=== PATIENT | female | born 1965 | race Caucasian/White ===

== ENCOUNTER 2019-07-13 09:18 | Inpatient (IN) | payer OTHER ==
[2019-07-10 11:49] LABS: BASOPHILS # (AUTO) 0.1 X10'3 (0-0.2); BASOPHILS % (AUTO) 0.6 % (0-1); EOSINOPHILS # (AUTO) 0.2 X10'3 (0-0.9); EOSINOPHILS % (AUTO) 2.4 % (0-6); LYMPHOCYTES # (AUTO) 2.8 X10'3 (1.1-4.8); LYMPHOCYTES % (AUTO) 30.7 % (21-51); MEAN CORPUSCULAR HEMOGLOBIN 31.3 PG (27.0-31.0); MEAN CORPUSCULAR HGB CONC 33.8 g/dL (33.0-36.5); MEAN CORPUSCULAR VOLUME 92.7 FL (78-98); MEAN PLATELET VOLUME 7.1 FL (7.4-10.4); MONOCYTES # (AUTO) 0.7 X10'3 (0-0.9); MONOCYTES % (AUTO) 7.9 % (2-12); NEUTROPHILS # (AUTO) 5.4 X10'3 (1.8-7.7); NEUTROPHILS % (AUTO) 58.4 % (42-75); PRE OP HEMATOCRIT 41.4 % (35.0-45.0); PRE OP PLATELET COUNT 382 X10'3 (140-440); RED BLOOD COUNT 4.47 X10'6 (4.20-5.60); RED CELL DISTRIBUTION WIDTH 13.6 % (11.5-14.5)
[2019-07-10 12:34] LABS: ALBUMIN 3.5 G/DL (3.4-5.0); ALBUMIN/GLOBULIN RATIO 0.8 (1.1-1.5); ALKALINE PHOSPHATASE 78 IU/L (46-116); BLOOD UREA NITROGEN 16 MG/DL (7-18); BUN/CREATININE RATIO 21.1 (6.6-38.0); CALCIUM 9.1 MG/DL (8.5-10.1); CHLORIDE 103 MMOL/L (99-107); CREATININE 0.76 MG/DL (0.40-0.90); PRE OP ALT 55 U/L (30-65); PRE OP ANION GAP 4 (8-16); PRE OP AST 33 U/L (10-37); PRE OP BILIRUB, TOTAL 0.4 MG/DL (0.0-1.0); PRE OP GLUCOSE 113 MG/DL (70-104); PRE OP POTASSIUM 4.3 MMOL/L (3.4-5.1); PRE OP SODIUM 136 MMOL/L (135-145); TOTAL PROTEIN 7.7 G/DL (6.4-8.2); eGFR 80 ML/MIN
[2019-07-13] VITALS (8 sets, daily range): BP systolic 123–142; BP diastolic 71–106
[~2019-07-13] VITALS: Ht 165.1 cm; Wt 134.0 kg
[~2019-07-13 09:18] MED LIST: ACET-812 PO; AMLO5TAB PO; ATOR20TA PO; CHOL20004 PO; FISH OIL PO; IBUP-24 PO; LEVO100T PO; MONT10TA26 PO; MULT-240 PO; PANT-47 PO; TRAM50TA2 PO; VENL150T3 PO; VENL75TA90 PO; VITA100T PO; ceFOXitin sod/dextrose 2g/50ml 50 ML IV ONE; famotidine 20mg tablet PO ONE; ringers solution, lacted 1,000 ML IV SCH
[2019-07-13] MEDS ORDERED: ALPR-624 PO (10:37)
[2019-07-13] MEDS ORDERED: GLUCOSAMINE PO (10:37)
[2019-07-13] MEDS ORDERED: ringers solution, lacted 1,000 ML IV SCH (12:11)
[2019-07-13] MEDS ORDERED: fentaNYL/PF 50MCG/1 ML 2ML syringe IV PRN ×2 (12:15)
[2019-07-13] MEDS ORDERED: enalaprilat dihydrate 2.5mg/2ml vial IV PRN (12:15)
[2019-07-13] MEDS ORDERED: morphine 2 MG/ML inj. syringe IV PRN (12:15)
[2019-07-13] MEDS ORDERED: morphine 4 MG/ML inj SYRINge IV PRN (12:15)
[2019-07-13] MEDS ORDERED: hydrALAZINE 20mg/ml inj. IV PRN (12:15)
[2019-07-13] MEDS ORDERED: ondansetron/PF 4mg/2ml inj IV PRN (12:15)
[2019-07-13] MEDS ORDERED: LIDOcaine 1% 30ml preserv. free vial ONE (12:23)
[2019-07-13] MEDS ORDERED: BUPIVAcaine/PF 2.5 mg/ml (0.25%) 30ml vial ONE (12:23)
[2019-07-13] MEDS ORDERED: dexamethasone sod phosphate 10mg/ml inj ONE (13:07)
[2019-07-13] MEDS ORDERED: sevoflurane 250ml liquid IH ONE (13:07)
[2019-07-13] MEDS ORDERED: labetalol 20mg/4ml (5mg/ml) syringe IV ONE (13:07)
[2019-07-13] MEDS ORDERED: midazolam 2 mg/2 ml injection ONE (13:10)
[2019-07-13] MEDS ORDERED: fentaNYL/PF 50MCG/1 ML 2ML syringe ONE (13:10)
[2019-07-13] MEDS ORDERED: propofol inj 20 ML IV ONE ×2 (13:19)
[2019-07-13] MEDS ORDERED: rocuronium 10mg/ml inj IV ONE ×2 (13:19→14:32)
[2019-07-13] MEDS ORDERED: LIDOcaine 2% (20mg/ml) 5ml vial ONE (13:19)
[2019-07-13] MEDS ORDERED: ondansetron/PF 4mg/2ml inj ONE (13:20)
[2019-07-13] MEDS ORDERED: ceFAZolin 1000mg inj ONE (13:21)
[2019-07-13] MEDS ORDERED: ceFOXitin 1000 MG inj ONE ×2 (13:34)
[2019-07-13] MEDS ORDERED: glycopyrrolate 0.2mg/ml inj ONE (14:39)
[2019-07-13] MEDS ORDERED: neostigmine methylsulfate 1 MG/ML 10ml vial ONE (14:39)
--- NOTE | 2019-07-13 14:55 | NUR ---
Received from OR via [facility], accompanied by Anesthesiologist MONI and report given by Anesthesiolgist. PT DROWSY, OXYGENATING WELL ON 10 LPM O2 VIA MASK, NO RESP DISTRESS NOTED. DENIES NAUSEA, C/O 6/10 ABD INCISIONAL PAIN. MEDICATED PRN, SEE EMAR. LARGE BANDAIDS TO 3 ABDOMINAL TROCAR SITES, CDI. VSS.
[2019-07-13] MEDS ORDERED: HYDROcodone/acetaminophen 5mg/325mg tablet PO PRN (15:05)
[2019-07-13] MEDS ORDERED: HYDROcodone/acetaminophen 10/325mg tab PO PRN (15:05)
[2019-07-13] MEDS ORDERED: HYDROcodone/acetaminophen 10/325mg tab PO ONE (15:30)
--- NOTE | 2019-07-13 16:20 | NUR ---
PAIN LEVEL TRENDING DOWN AFTER MEDS GIVEN, VSS. TOLERATING PO FLUIDS WELL. AMBULATED TO BR, VOIDED WITHOUT DIFFICULTY. DC INSTRUCTIONS WERE EXPLAINED TO PT AND HER DAUGHTERS, THEY VERBALIZED UNDERSTANDING. DCD IN STABLE CONDITION, TAKEN TO CAR VIA WC. PRESCRIPTION WAS GIVEN TO PT
== END 2019-07-14 16:20 | disposition home or self-care (01) | DRG 331 ==
LOC: PAS IN 09:18 → EDSTATUS 11:15
PROVIDERS: ADMIT Surgery; ATTEND Surgery
PROC: 8E0W4CZ Robotic Assisted Procedure of Trunk Region, Percutaneous Endoscopic Approach (ICD-10-PCS; 2019-07-13)
PROC: 0DBH4ZZ Excision of Cecum, Percutaneous Endoscopic Approach (ICD-10-PCS; principal; 2019-07-13 13:07)
DX: C18.0 Malignant neoplasm of cecum (principal); Z90.49 Acquired absence of other specified parts of digestive tract
CPT/HCPCS: Z7506; Z7508; 36415; 80053; 82948; 85025; 93005; A4215; A4618; J0690; J0694; J1100; J2001; J2250; J2270; J2405; J2704; J2710; J3010; J3490; J7120

== ENCOUNTER 2021-06-20 06:13 | Inpatient (IN) | payer OTHER ==
[2021-06-13 14:50] LABS: BASOPHILS % (AUTO) 0.6 % (0-1); EOSINOPHILS # (AUTO) 0.2 X10'3 (0-0.9); EOSINOPHILS % (AUTO) 1.9 % (0-6); LYMPHOCYTES # (AUTO) 3.1 X10'3 (1.1-4.8); LYMPHOCYTES % (AUTO) 37.2 % (21-51); MEAN CORPUSCULAR HEMOGLOBIN 32.2 PG (27.0-31.0); MEAN CORPUSCULAR HGB CONC 34.4 g/dL (33.0-36.5); MEAN CORPUSCULAR VOLUME 93.4 FL (78-98); MEAN PLATELET VOLUME 7.1 FL (7.4-10.4); MONOCYTES # (AUTO) 0.5 X10'3 (0-0.9); MONOCYTES % (AUTO) 6.2 % (2-12); NEUTROPHILS # (AUTO) 4.5 X10'3 (1.8-7.7); NEUTROPHILS % (AUTO) 54.1 % (42-75); PRE OP HEMATOCRIT 39.5 % (35.0-45.0); PRE OP HEMOGLOBIN 13.6 g/dL (12.0-16.0); PRE OP PLATELET COUNT 411 X10'3 (140-440); RED BLOOD COUNT 4.23 X10'6 (4.20-5.60)
[2021-06-13 15:09] LABS: ALKALINE PHOSPHATASE 79 IU/L (46-116); BLOOD UREA NITROGEN 18 MG/DL (7-18); BUN/CREATININE RATIO 21.2 (6.6-38.0); CALCIUM 9.4 MG/DL (8.5-10.1); CHLORIDE 102 MMOL/L (99-107); CREATININE 0.85 MG/DL (0.40-0.90); PRE OP ALT 61 U/L (30-65); PRE OP ANION GAP 8 (8-16); PRE OP AST 32 U/L (10-37); PRE OP BILIRUB, TOTAL 0.5 MG/DL (0.0-1.0); PRE OP GLUCOSE 103 MG/DL (70-104); PRE OP POTASSIUM 4.5 MMOL/L (3.4-5.1); PRE OP SODIUM 137 MMOL/L (135-145); TOTAL CARBON DIOXIDE 26.7 MMOL/L (24-32); eGFR 70 ML/MIN
[2021-06-13 16:03] LABS: HEMOGLOBIN A1C 6.4 % (4.5-6.2)
[~2021-06-20] VITALS: Ht 165.1 cm; Wt 127.1 kg
[2021-06-20] VITALS (23 sets, daily range): BP systolic 108–159; BP diastolic 45–97
[~2021-06-20 06:13] MED LIST changes: -ACET-812 PO; -ATOR20TA PO; +ATOR40TA PO; -CHOL20004 PO; -FISH OIL PO; +GLUCOSAMINE PO; -IBUP-24 PO; +KRILL OIL; +MONT-40 PO; -MONT10TA26 PO; -VITA100T PO; +ceFAZolin inj. 3,000 MG in normal saline 100ml IV soln 100 ML IV ONE; -ceFOXitin sod/dextrose 2g/50ml 50 ML IV ONE; -ringers solution, lacted 1,000 ML IV SCH; +tranexamic acid 650mg tablet PO ONE; +vancomycin 1,500 MG in NS 300ml IV soln IV ONE
[2021-06-20] MEDS ORDERED: PSYL1CAP3 PO (06:48)
[2021-06-20] MEDS: ringers solution, lacted 1,000 ML IV SCH ×2 (06:51→13:18)
[2021-06-20] MEDS ORDERED: tetracaine 1% (10mg/ml) pres. free inj. ONE (09:11)
[2021-06-20] MEDS ORDERED: MIDAZolam 1mg/ml 10ml vial ONE (09:14)
[2021-06-20] MEDS ORDERED: fentaNYL/PF 50MCG/1 ML 2ML syringe ONE (09:14)
[2021-06-20] MEDS ORDERED: ketorolac trometh. 30mg/ml inj. ONE (09:38)
[2021-06-20] MEDS ORDERED: ROPIVAcaine 0.5% (5mg/ml) 30ml vial ONE ×2 (09:39→11:22)
[2021-06-20] MEDS ORDERED: propofol inj 20 ML IV ONE ×3 (10:19→10:20)
[2021-06-20] MEDS ORDERED: proCHLORperazine 10 MG/2 ml inj IV PRN (10:45)
[2021-06-20] MEDS ORDERED: morphine 4 MG/ML inj SYRINge IV PRN (10:45)
[2021-06-20] MEDS ORDERED: meperidine/PF 25mg/ml syringe IV PRN ×3 (10:45)
[2021-06-20] MEDS ORDERED: ondansetron/PF 4mg/2ml inj IV PRN (10:45)
[2021-06-20] MEDS ORDERED: morphine 2 MG/ML inj. syringe IV PRN (10:45)
[2021-06-20] MEDS ORDERED: ringers solution, lacted 1,000 ML IV SCH (10:45)
--- NOTE | 2021-06-20 11:43 | NUR ---
Received from OR via , accompanied by Anesthesiologist DR CAT and report given by Anesthesiolgist. PT PRESENTS WITH 20G RIGHT WRIST, RIGHT KNEE DRESSING DRY AND INTACT WITH PODER PACK. VSS. Addendum: 06/20/21 at 1336 by Morena Cortez RN, RN Amended: Links added.
[2021-06-20] MEDS ORDERED: diphenhydrAMINE 25mg capsule PO PRN ×2 (12:00)
[2021-06-20] MEDS ORDERED: HYDROmorphone inj. 0.5 MG/0.5 ML DISP.SYRIN IV PRN (12:00)
[2021-06-20] MEDS ORDERED: oxyCODONE IR 5mg (immed. release) tablet PO PRN (12:00)
[2021-06-20] MEDS ORDERED: magnesium hydroxide 30ml (MOM) UD suspension PO PRN (12:00)
[2021-06-20] MEDS ORDERED: acetaminophen 325mg tablet PO PRN (12:00)
[2021-06-20] MEDS ORDERED: bisacodyl 10mg suppository rectal RC PRN (12:00)
--- NOTE | 2021-06-20 13:23 | NUR ---
Report called to receiving nurse ANDREW COREAS. Transferred via [facility]OS[facility] BED. PT BELONGINGS WERE GIVEN TO DAUGHTER EXCEPT GLASSES PT HAS THEM ON HER BED. Special Issues communicated to receiving nurse. Addendum: 06/20/21 at 1335 by Morena Cortez RN, RN Amended: Links added.
--- NOTE | 2021-06-20 13:40 | NUR ---
PT HAS ARRIVED TO FLOOR IN ROOM WITH DAUGHTER AT BEDSIDE. NO CURRENT COMPLAINTS, STILL LACKING SENSATION IN LOWER EXTREMITIES DUE TO SPINAL BLOCK BUT GOOD BILATERAL PEDAL PULSE AND WARM TO TOUCH FOR BOTH LOWER EXTREMITIES.
[2021-06-20] MEDS: acetaminophen 325mg tablet PO SCH ×2 (14:40→21:09)
[2021-06-20] MEDS: ceFAZolin/D5W- 1GM premix 50 ML IV SCH (15:29)
[2021-06-20] MEDS: potassium cl 20mEq in 1/2 NS 1,000 ML IV SCH ×2 (16:22→20:00)
[2021-06-20] MEDS: HYDROmorphone 1 mg/ml syringe IV PRN ×2 (18:08→22:38)
--- NOTE | 2021-06-20 18:46 | NUR ---
REPORT GIVEN TO FERNANDO COREAS, ALL QUESTIONS ANSWERED. PT GIVEN DILAUDID PRIOR TO SHIFT CHANGE FOR PAIN.
[2021-06-20] MEDS ORDERED: vancomycin/NS 1 GM ADD-VANTAGE 250 ML IV SCH (20:00)
[2021-06-20] MEDS: venlafaxine XR 75mg capsule (Q24H) PO SCH (21:00)
[2021-06-20] MEDS: psyllium seed 3.4 gm packet PO SCH (21:01)
[2021-06-20] MEDS: oxyCODONE IR 5mg (immed. release) tablet PO PRN (21:08)
[2021-06-20] MEDS: sennosides 8.6mg tablet PO SCH (21:09)
--- NOTE | 2021-06-20 23:04 | NUR ---
error 0829 attempted to undo [place] to enter pain number and info but inadvertedly undid 0829 [place]
[2021-06-21] VITALS: BP 100/57
[2021-06-21] MEDS ORDERED: HYDROmorphone 1 mg/ml syringe IV PRN (00:10)
[2021-06-21] MEDS: ceFAZolin/D5W- 1GM premix 50 ML IV SCH (00:19)
[2021-06-21] MEDS: potassium cl 20mEq in 1/2 NS 1,000 ML IV SCH ×3 (00:20→21:11)
[2021-06-21 01:34] VITALS: BP 145/74
[2021-06-21] MEDS: acetaminophen 325mg tablet PO SCH ×2 (02:15→09:44)
[2021-06-21 04:00] VITALS: BP 133/76
[2021-06-21] MEDS: HYDROmorphone 1 mg/ml syringe IV PRN ×2 (04:10→06:22)
--- NOTE | 2021-06-21 06:42 | NUR ---
report to Rani nolan informed her of possible interaction between oxycodone and effexor
[2021-06-21 06:59] LABS: BASOPHILS % (AUTO) 0.2 % (0-1); EOSINOPHILS % (AUTO) 0.2 % (0-6); HEMATOCRIT 35.1 % (35.0-45.0); HEMOGLOBIN 12.3 g/dl (12.0-16.0); LYMPHOCYTES # (AUTO) 1.9 X10'3 (1.1-4.8); LYMPHOCYTES % (AUTO) 16.7 % (21-51); MEAN CORPUSCULAR HEMOGLOBIN 32.3 PG (27.0-31.0); MEAN CORPUSCULAR HGB CONC 34.9 g/dL (33.0-36.5); MEAN CORPUSCULAR VOLUME 92.4 FL (78-98); MEAN PLATELET VOLUME 7.2 FL (7.4-10.4); MONOCYTES # (AUTO) 0.8 X10'3 (0-0.9); MONOCYTES % (AUTO) 7.4 % (2-12); NEUTROPHILS # (AUTO) 8.4 X10'3 (1.8-7.7); NEUTROPHILS % (AUTO) 75.5 % (42-75); PLATELET COUNT 404 X10'3 (140-440); RED CELL DISTRIBUTION WIDTH 12.9 % (11.5-14.5); WHITE BLOOD COUNT 11.2 X10'3 (4.5-11.0)
[2021-06-21 07:21] LABS: ANION GAP 6 (8-16); CHLORIDE 100 MMOL/L (99-107); POTASSIUM 4.7 MMOL/L (3.5-5.1); SODIUM 134 MMOL/L (135-145); TOTAL CARBON DIOXIDE 27.6 MMOL/L (24-32)
[2021-06-21] MEDS ORDERED: GLUCOSAMINE PO SCH (08:00)
[2021-06-21] MEDS ORDERED: VENLAFAXINE HCL PO SCH (08:00)
[2021-06-21] MEDS: pantoprazole 40mg Tablet.DR PO SCH (08:00)
[2021-06-21 09:00] VITALS: BP 154/85
[2021-06-21] MEDS: atorvastatin 20mg tablet PO SCH (09:37)
[2021-06-21] MEDS: multivitamins, therapeutics tablet PO SCH (09:37)
[2021-06-21] MEDS: levoTHYROXINE 100mcg tablet PO SCH (09:37)
[2021-06-21] MEDS: amLODIPine 5mg tablet PO SCH (09:37)
[2021-06-21] MEDS: montelukast 10mg tablet PO SCH (09:38)
[2021-06-21] MEDS: aspirin 325mg tablet PO SCH (09:38)
[2021-06-21] MEDS: traMADol 50MG tablet PO SCH (09:38)
[2021-06-21] MEDS: oxyCODONE IR 5mg (immed. release) tablet PO PRN ×2 (09:44→13:42)
[2021-06-21] MEDS: ondansetron/PF 4mg/2ml inj IV PRN ×2 (09:58→17:16)
--- NOTE | 2021-06-21 11:32 | NUR ---
Pt s/p right TKA. Per neck band operator pt with possible med interaction this morning. Pt documented to be lethargic per PT notes. Protein education not appropriate at this time. Will continue to follow. Addendum: 06/21/21 at [address] Amended: Links added.
[2021-06-21] MEDS ORDERED: HYDROcodone/acetaminophen 10/325mg tab PO PRN (15:00)
[2021-06-21] MEDS: HYDROcodone/acetaminophen 10/325mg tab PO PRN ×2 (17:44→21:54)
[2021-06-21] MEDS: lactose-reduced food (Ensure High Protein) 237ml bottle PO SCH (18:00)
--- NOTE | 2021-06-21 18:31 | NUR ---
Problems reprioritized. Patient report given, questions answered & plan of care reviewed with FERNANDO COREAS.
[2021-06-21 20:00] VITALS: BP 166/78
[2021-06-21] MEDS ORDERED: celeCOXIB 100mg capsule PO SCH (20:00)
[2021-06-21] MEDS: psyllium seed 3.4 gm packet PO SCH (21:10)
[2021-06-21] MEDS: sennosides 8.6mg tablet PO SCH (21:10)
[2021-06-21] MEDS: venlafaxine XR 75mg capsule (Q24H) PO SCH (21:11)
[2021-06-21] MEDS: celeCOXIB 100mg capsule PO SCH (21:11)
[2021-06-22] VITALS: BP 191/80
[2021-06-22 00:30] VITALS: BP 151/76
[2021-06-22] MEDS: HYDROcodone/acetaminophen 10/325mg tab PO PRN ×2 (02:31→09:11)
[2021-06-22] MEDS: potassium cl 20mEq in 1/2 NS 1,000 ML IV SCH (04:54)
[2021-06-22 06:01] LABS: BASOPHILS % (AUTO) 0.2 % (0-1); EOSINOPHILS % (AUTO) 0.4 % (0-6); HEMATOCRIT 33.5 % (35.0-45.0); HEMOGLOBIN 11.6 g/dl (12.0-16.0); LYMPHOCYTES # (AUTO) 1.7 X10'3 (1.1-4.8); LYMPHOCYTES % (AUTO) 17.6 % (21-51); MEAN CORPUSCULAR HEMOGLOBIN 32.2 PG (27.0-31.0); MEAN CORPUSCULAR HGB CONC 34.5 g/dL (33.0-36.5); MEAN CORPUSCULAR VOLUME 93.3 FL (78-98); MEAN PLATELET VOLUME 7.5 FL (7.4-10.4); MONOCYTES # (AUTO) 1.1 X10'3 (0-0.9); NEUTROPHILS % (AUTO) 70.8 % (42-75); PLATELET COUNT 358 X10'3 (140-440); RED BLOOD COUNT 3.59 X10'6 (4.20-5.60); RED CELL DISTRIBUTION WIDTH 12.7 % (11.5-14.5); WHITE BLOOD COUNT 9.9 X10'3 (4.5-11.0)
[2021-06-22] MEDS: pantoprazole 40mg Tablet.DR PO SCH ×2 (07:49→07:53)
[2021-06-22] MEDS: traMADol 50MG tablet PO SCH (07:49)
[2021-06-22] MEDS: multivitamins, therapeutics tablet PO SCH (07:49)
[2021-06-22] MEDS: atorvastatin 20mg tablet PO SCH (07:49)
[2021-06-22] MEDS: celeCOXIB 100mg capsule PO SCH (07:49)
[2021-06-22] MEDS: levoTHYROXINE 100mcg tablet PO SCH (07:49)
[2021-06-22] MEDS: aspirin 325mg tablet PO SCH (07:49)
[2021-06-22] MEDS: amLODIPine 5mg tablet PO SCH (07:50)
[2021-06-22] MEDS: montelukast 10mg tablet PO SCH (07:52)
[2021-06-22 08:00] VITALS: BP 152/71
[2021-06-22] MEDS: lactose-reduced food (Ensure High Protein) 237ml bottle PO SCH ×2 (08:00→13:00)
[2021-06-22 09:34] VITALS: BP 152/71
[2021-06-22 11:00] VITALS: BP 119/62
--- NOTE | 2021-06-22 11:17 | NUR ---
message left with Dr kapadia's answering servoce to make aware of pt passing PT eval.
--- NOTE | 2021-06-22 11:44 | NUR ---
Primary Joint consult: Provided pt w/ written and verbal high protein diet education w/ RD contact info. Pt receptive of information. Addendum: 06/22/21 at [address] Amended: Links added.
--- NOTE | 2021-06-22 14:42 | NUR ---
TO from dr kapadia for d/c home, pt already has pain meds
--- NOTE | 2021-06-22 18:29 | NUR ---
whole intact iv catheter removed, d/c instructions reviewed with pt and daughter, to exit via wheelchair with dermatology teacher, daughter drove pt.
== END 2021-06-22 18:15 | disposition home or self-care (01) | DRG 470 ==
LOC: PAS 06:13 → EDSTATUS 09:00 → SUR 3N 12:01 → OBSVTOIN 06-21 14:45
PROVIDERS: ADMIT Orthopaedic Surgery; ATTEND Orthopaedic Surgery
PROC: 8E0YXBZ Computer Assisted Procedure of Lower Extremity (ICD-10-PCS; 2021-06-20)
PROC: 8E0Y0CZ Robotic Assisted Procedure of Lower Extremity, Open Approach (ICD-10-PCS; 2021-06-20)
PROC: 3E0T3BZ Introduction of Anesthetic Agent into Peripheral Nerves and Plexi, Percutaneous Approach (ICD-10-PCS; 2021-06-20)
PROC: 3E0T33Z Introduction of Anti-inflammatory into Peripheral Nerves and Plexi, Percutaneous Approach (ICD-10-PCS; 2021-06-20)
PROC: 0SRC0J9 Replacement of Right Knee Joint with Synthetic Substitute, Cemented, Open Approach (ICD-10-PCS; principal; 2021-06-20 09:17)
DX: M17.11 Unilateral primary osteoarthritis, right knee (principal); Z68.42 Body mass index [BMI] 45.0-49.9, adult; K21.9 Gastro-esophageal reflux disease without esophagitis; E78.5 Hyperlipidemia, unspecified; I10 Essential (primary) hypertension; E11.9 Type 2 diabetes mellitus without complications; E66.01 Morbid (severe) obesity due to excess calories
CPT/HCPCS: 36415; 80051; 80053; 82948; 83036; 84443; 85025; 87081; 96375; 96376; 97110; 97116; 97161; 97530; G0378; J0690; J1170; J1885; J2250; J2405; J2704; J2795; J3010; J3370; J3480; J3490; J7040; J7120; U0003; U0005